=== PATIENT | male | born 1930 | race Caucasian/White ===

== ENCOUNTER 2016-09-04 09:25 | Day surgery (SDC) | payer MEDICARE, BC ==
[~2016-09-04] VITALS: Ht 167.7 cm; Wt 56.8 kg
[2016-09-04] VITALS (11 sets, daily range): BP systolic 117–146; BP diastolic 64–92; PULSE 49–67; TEMP 97.7–98.2
[~2016-09-04 09:25] MED LIST: ASPIRIN 32325 MG/TAB PO; ASPIRIN E.C. 8181 MG PO; COREG 3.123.125 MG/T PO; LIPITOR 80MG80 MG PO; LISINOPRIL20 MG PO; LOTENSIN 1010 MG/TAB; MULTIPLE VITAMI1 CAP PO; NITRO-DUR0.4 MG/PAT TD; NITROSTAT0.4 MG/TAB SL; NORCO 325 MG-51 TAB PO; PLAVIX 75MG TAB75 MG PO; PREDNISONE20 MG PO; SIMVASTATIN40 MG PO
[2016-09-04 10:42] LABS: MEAN CELL VOLUME 95 fl (80.0-100.0); MEAN CORPUSCULAR HGB CONC 33 g/dl (33.0-37.0); MEAN PLATELET VOLUME 10.3 fl (7.4-10.4); PLATELET COUNT 182 K/mm3 (130-400); RED BLOOD COUNT 3.81 M/mm3 (4.20-5.60); REDCELL DISTRIBUTION WIDTH-CV 13.6 % (11.5-14.5); WHITE BLOOD COUNT 7.5 K/mm3 (4.8-10.8)
[2016-09-04 10:45] LABS: INR 1.2 (0.8-3.0)
[2016-09-04 10:46] LABS: HEMATOCRIT 36.1 % (42.0-52.0); HEMOGLOBIN 11.9 g/dl (13.5-18.0); MEAN CORPUSCULAR HEMOGLOBIN 31 pg (27.0-31.0)
[2016-09-04] MEDS ORDERED: ASPIRIN 32325 MG/TAB PO (10:48)
[2016-09-04] MEDS ORDERED: LOTENSIN40 MG PO (10:48)
[2016-09-04] MEDS ORDERED: OMEGA-3 1000 MG1 CAP PO (10:49)
[2016-09-04] MEDS ORDERED: ZOCOR 80MG80 MG PO (10:50)
[2016-09-04] MEDS ORDERED: NITROSTAT0.4 MG/TAB SL (10:52)
[2016-09-04] MEDS ORDERED: LIPITOR 80MG80 MG PO (10:53)
[2016-09-04] MEDS ORDERED: IMDUR 30MG30 MG/TAB PO (10:54)
[2016-09-04] MEDS ORDERED: PLAVIX 75MG TAB75 MG PO (10:54)
[2016-09-04 11:04] LABS: CALCIUM 8.8 mg/dL (8.4-10.2); CREATININE, serum 1.44 mg/dL (0.66-1.25); POTASSIUM 3.7 mmol/L (3.4-5.0)
[2016-09-05 03:50] VITALS: BP 148/70; PULSE 62; TEMP 98
[2016-09-05 08:32] VITALS: BP 116/65; PULSE 60; TEMP 97.9
[2016-09-05] MEDS ORDERED: CEPHALEXIN500 M1 PO (10:58)
[2016-09-05] MEDS ORDERED: COREG 3.123.125 MG/T PO ×2 (10:59→11:02)
== END 2016-09-05 11:25 | disposition home or self-care (01) ==
LOC: COL.CAR 09:25 → MEDICAL 12:52 → COL.CAR 09-05 11:25
PROVIDERS: Internal Medicine Cardiovascular Disease
DX: R00.1 Bradycardia, unspecified (principal); I44.0 Atrioventricular block, first degree; I25.10 Atherosclerotic heart disease of native coronary artery without angina pectoris; E78.5 Hyperlipidemia, unspecified
CPT/HCPCS: OP; C1785; C1894; C1898; J0690; J2250; J3010; J7030

== ENCOUNTER 2016-09-16 07:43 | Emergency (ER) | payer MEDICARE, BC ==
[~2016-09-16] VITALS: Ht 167.6 cm; Wt 56.8 kg
[~2016-09-16 07:43] MED LIST changes: +CEPHALEXIN500 M1 PO; +IMDUR 30MG30 MG/TAB PO; +LOTENSIN40 MG PO; +OMEGA-3 1000 MG1 CAP PO; +ZOCOR 80MG80 MG PO
[2016-09-16 07:50] VITALS: BP 158/92; PULSE 69; TEMP 97.4
== END 2016-09-16 10:50 | disposition home or self-care (01) ==
LOC: COL.ER 07:43
DX: I82.622 Acute embolism and thrombosis of deep veins of left upper extremity (principal); Z95.0 Presence of cardiac pacemaker; I25.10 Atherosclerotic heart disease of native coronary artery without angina pectoris; I10 Essential (primary) hypertension; I25.2 Old myocardial infarction; Z79.01 Long term (current) use of anticoagulants; Z79.82 Long term (current) use of aspirin

== ENCOUNTER 2017-03-23 02:51 | Inpatient (IN) | payer MEDICARE, BC ==
[~2017-03-23] VITALS: Ht 167.6 cm; Wt 55.7 kg
[2017-03-23] MEDS ORDERED: COREG 6.256.25 MG/TA PO (03:07)
[2017-03-23] MEDS ORDERED: ELIQUIS 5MG PO (03:08)
[2017-03-23 03:24] LABS: BASO % 0.5 % (0.0-2.0); EOS # 0.1 (0.0-0.7); GRAN % 59.3 % (42.2-75.2); HEMATOCRIT 38.7 % (42.0-52.0); HEMOGLOBIN 12.8 g/dl (13.5-18.0); LYMPH # 2.6 (1.2-3.4); LYMPH % 30.4 % (20.0-51.0); MEAN CELL VOLUME 96 fl (80.0-100.0); MEAN CORPUSCULAR HEMOGLOBIN 32 pg (27.0-31.0); MEAN CORPUSCULAR HGB CONC 33 g/dl (33.0-37.0); MEAN PLATELET VOLUME 9.9 fl (7.4-10.4); MONO # 0.7 (0.1-0.6); MONO % 8.7 % (1.7-9.3); PLATELET COUNT 178 K/mm3 (130-400); RED BLOOD COUNT 4.04 M/mm3 (4.20-5.60); WHITE BLOOD COUNT 8.4 K/mm3 (4.8-10.8)
[2017-03-23 03:28] LABS: PROTHROMBIN TIME 18.6 SECONDS (9.7-12.8)
[2017-03-23 03:29] LABS: INR 1.6 (0.8-3.0)
[2017-03-23 03:30] LABS: ADJUSTED CALCIUM 9.3 mg/dL (8.4-10.2); ALANINE AMINOTRANSFERASE 30 U/L (21-72); ALBUMIN 3.7 gm/dL (3.5-5.0); ALKALINE PHOSPHATASE 93 U/L (50-136); ANION GAP 7 mmol/L (7-16); BILIRUBIN,TOTAL 0.6 mg/dL (0.0-1.0); BLOOD UREA NITROGEN 28 mg/dL (9-20); CALCIUM 9.1 mg/dL (8.4-10.2); CARBON DIOXIDE 26 mmol/L (22-30); CHLORIDE 109 mmol/L (98-107); CREATININE, serum 1.26 mg/dL (0.66-1.25); GLUCOSE 94 mg/dL (74-106); SODIUM 142 mmol/L (137-145); TOTAL PROTEIN 6.8 gm/dL (6.4-8.2)
[2017-03-23 03:31] LABS: PARTIAL THROMBOPLASTIN TIME 33.5 SECONDS (26.0-37.0)
[2017-03-23 03:42] LABS: TROPONIN-I < 0.012 ng/mL (0.000-0.034)
[2017-03-23 05:10] LABS: CHOLESTEROL RISK RATIO 2.3; MAGNESIUM 1.9 mg/dL (1.6-2.3)
[2017-03-23] MEDS ORDERED: ASPIRIN E.C. 8181 MG PO (05:27)
[2017-03-23 05:28] VITALS: BP 152/91; PULSE 72; TEMP 98.2
[2017-03-23 10:00] VITALS: BP 143/75; PULSE 60; TEMP 97.7
[2017-03-23 11:38] VITALS: BP 150/81; PULSE 61; TEMP 97.6
[2017-03-23 16:11] VITALS: BP 114/60; PULSE 61; TEMP 98.4
[2017-03-23 21:13] VITALS: BP 96/61; PULSE 59; TEMP 98.2
[2017-03-24 01:07] VITALS: BP 83/54; PULSE 58; TEMP 98.8
[2017-03-24 01:24] VITALS: BP 109/66
[2017-03-24 05:13] VITALS: BP 113/65; PULSE 63; TEMP 97.9
[2017-03-24 08:14] VITALS: BP 98/64; PULSE 78
[2017-03-24 09:20] LABS: CALCIUM 9.2 mg/dL (8.4-10.2); CREATININE, serum 1.51 mg/dL (0.66-1.25); PHOSPHOROUS 3.6 mg/dL (2.5-4.5); POTASSIUM 3.8 mmol/L (3.4-5.0)
[2017-03-24 09:22] LABS: BASO # 0.1 (0.0-0.2); BASO % 0.7 % (0.0-2.0); EOS # 0.1 (0.0-0.7); EOS % 0.8 % (0-4.0); GRAN # 4.9 (1.4-6.5); LYMPH # 2.7 (1.2-3.4); LYMPH % 32.3 % (20.0-51.0); MEAN CELL VOLUME 96 fl (80.0-100.0); MEAN CORPUSCULAR HEMOGLOBIN 32 pg (27.0-31.0); MEAN CORPUSCULAR HGB CONC 33 g/dl (33.0-37.0); MEAN PLATELET VOLUME 9.9 fl (7.4-10.4); MONO # 0.6 (0.1-0.6); PLATELET COUNT 192 K/mm3 (130-400); RED BLOOD COUNT 4.06 M/mm3 (4.20-5.60); WHITE BLOOD COUNT 8.4 K/mm3 (4.8-10.8)
[2017-03-24 11:03] VITALS: BP 92/56; PULSE 67; TEMP 98.1
[2017-03-24] MEDS ORDERED: COREG12.5 MG PO (14:09)
[2017-03-24] MEDS ORDERED: IMDUR 30MG30 MG/TAB PO (14:10)
== END 2017-03-24 15:38 | disposition home or self-care (01) | DRG 303 ==
LOC: COL.ER 02:51 → MEDICAL 03:59 → COL.ER 03:59 → SURG 03-24 12:21 → MEDICAL 03-24 12:21 → SURG 03-24 12:25 → MEDICAL 03-24 15:38
PROVIDERS: Family Medicine; Internal Medicine; Nurse Practitioner Family
DX: I25.110 Atherosclerotic heart disease of native coronary artery with unstable angina pectoris (principal); I13.0 Hypertensive heart and chronic kidney disease with heart failure and stage 1 through stage 4 chronic kidney disease, or unspecified chronic kidney disease; N18.9 Chronic kidney disease, unspecified; I50.9 Heart failure, unspecified; E78.5 Hyperlipidemia, unspecified; D63.8 Anemia in other chronic diseases classified elsewhere; I25.2 Old myocardial infarction; Z95.0 Presence of cardiac pacemaker; Z79.02 Long term (current) use of antithrombotics/antiplatelets; Z86.718 Personal history of other venous thrombosis and embolism
CPT/HCPCS: 99222-AI; 99239; J7030